=== PATIENT | male | born 1950 | race Caucasian/White ===

== ENCOUNTER → 2016-08-25 | Outpatient (CLI) | payer OTHER | LOC: RAD 08:37 | DX: M47.816 Spondylosis without myelopathy or radiculopathy, lumbar region (principal); M54.5 Low back pain; M25.552 Pain in left hip ==

== ENCOUNTER 2016-11-25 09:42 | Inpatient (IN) | payer OTHER ==
[~2016-11-25] VITALS: Ht 167.6 cm; Wt 81.6 kg
[2016-11-25 10:39] LABS: CREATININE 1.4 mg/dL (0.7-1.3)
[2016-11-25 12:42] VITALS: BP 161/104
[2016-11-25 13:30] LABS: HEMATOCRIT 48.6 % (42.0-52.0); HEMOGLOBIN 16.9 gm/dL (14.0-18.0); MCH 30.9 pg (26.0-34.0); MCHC 34.7 g/dL (28.0-37.0); RBC 5.47 mil/uL (4.50-6.00); RDW 15.1 % (10.5-14.5); WBC 17.6 thou/uL (4.0-11.0)
[2016-11-25 13:45] LABS: ALBUMIN 4.4 g/dL (3.4-5.0); CALCIUM 9.7 mg/dL (8.5-10.1); CREATININE 1.6 mg/dL (0.7-1.3); TOTAL BILIRUBIN 1.1 mg/dL (<0.1-1.0); TOTAL PROTEIN 9.1 g/dL (6.4-8.2)
[2016-11-25 13:53] LABS: POTASSIUM 3.2 mmol/L (3.5-5.1)
[2016-11-25 14:20] LABS: URINE BILIRUBIN NEGATIVE (Negative); URINE BLOOD 3+ (Negative); URINE COLOR YELLOW; URINE GLUCOSE-RANDOM* NEGATIVE (Negative); URINE KETONES 1+ (Negative); URINE NITRITE NEGATIVE (Negative); URINE PROTEIN (DIPSTICK) NEGATIVE (Negative); URINE SPECIFIC GRAVITY <= 1.005 (1.003-1.035); URINE UROBILINOGEN 0.2 E.U./dl (0.2-1.0)
[2016-11-25 14:34] LABS: BACTERIA 1-9 Few /HPF (None Seen); CASTS None Seen /LPF (None Seen); CRYSTALS None Seen /LPF (None Seen); SQUAMOUS None Seen /LPF (0-3); URINE RBC >20 Many /HPF (0-2); URINE WBC None Seen /HPF (0-5)
[2016-11-25 16:23] VITALS: BP 174/105
[2016-11-25 21:58] VITALS: BP 143/106
[2016-11-26 04:57] VITALS: BP 144/101
[2016-11-26 06:11] LABS: HEMATOCRIT 42.1 % (42.0-52.0); MCH 30.9 pg (26.0-34.0); MCHC 34.2 g/dL (28.0-37.0); MCV 90.4 fL (80.0-100.0); RBC 4.65 mil/uL (4.50-6.00); WBC 13.5 thou/uL (4.0-11.0)
[2016-11-26 06:21] LABS: CALCIUM 8.6 mg/dL (8.5-10.1); CREATININE 1.2 mg/dL (0.7-1.3); POTASSIUM 3.4 mmol/L (3.5-5.1)
[2016-11-26 06:30] LABS: HEMOGLOBIN 14.4 gm/dL (14.0-18.0)
[2016-11-26 07:53] VITALS: BP 134/91
[2016-11-26] MEDS ORDERED: HYDROCODON-ACE1 EAC7 PO (15:08)
[2016-11-26] MEDS ORDERED: FLOMAX0.4 MG PO (15:09)
[2016-11-26] MEDS ORDERED: ZOFRAN ODT4 MG PO (15:10)
[2016-11-26 15:24] VITALS: BP 134/91
[2016-11-26 15:29] VITALS: BP 134/91
[2016-11-26 15:44] VITALS: BP 134/91
== END 2016-11-26 16:49 | disposition home or self-care (01) | DRG 694 ==
LOC: CAT 09:42 → 4E 12:21
PROVIDERS: Family Medicine; Hospitalist
DX: N13.2 Hydronephrosis with renal and ureteral calculous obstruction (principal); K59.00 Constipation, unspecified; I10 Essential (primary) hypertension; N17.9 Acute kidney failure, unspecified; Z79.899 Other long term (current) drug therapy; Z86.19 Personal history of other infectious and parasitic diseases; Z87.891 Personal history of nicotine dependence
CPT/HCPCS: 10783

== ENCOUNTER 2017-11-12 02:31 | Emergency (ER) | payer OTHER ==
[~2017-11-12] VITALS: Ht 167.6 cm; Wt 84.8 kg
[~2017-11-12 02:31] MED LIST: FLOMAX0.4 MG PO; HYDROCODON-ACE1 EAC7 PO; ZOFRAN ODT4 MG PO
[2017-11-12] MEDS ORDERED: HYDROCHLOROTHIA25 M2 PO (03:19)
[2017-11-12] MEDS ORDERED: AMLODIPINE BESY10 MG PO (03:20)
[2017-11-12 03:42] LABS: ABSOLUTE NEUTROPHILS 9.9 thou/uL (1.4-8.2); BASOPHILS 0.8 % (0.0-2.0); EOSINOPHILS 1.1 % (0.0-3.0); HEMATOCRIT 44.6 % (42.0-52.0); HEMOGLOBIN 15.2 gm/dL (14.0-18.0); LYMPHOCYTES 19.3 % (24.0-44.0); MCH 31.2 pg (26.0-34.0); MCHC 34.2 g/dL (28.0-37.0); MCV 91.1 fL (80.0-100.0); MONOCYTES 11.7 % (1.0-8.0); PLATELET COUNT 230 thou/uL (150-400); POLYS 67.1 % (36.0-66.0); RBC 4.89 mil/uL (4.50-6.00); WBC 14.8 thou/uL (4.0-11.0)
[2017-11-12 03:50] LABS: CALCIUM 9.2 mg/dL (8.5-10.1); CREATININE 1.1 mg/dL (0.7-1.3); POTASSIUM 3.9 mmol/L (3.5-5.1)
[2017-11-12 03:56] LABS: ALBUMIN 3.4 g/dL (3.4-5.0); TOTAL PROTEIN 7.4 g/dL (6.4-8.2)
[2017-11-12 04:39] LABS: URINE BILIRUBIN NEGATIVE (Negative); URINE BLOOD NEGATIVE (Negative); URINE CLARITY CLEAR; URINE COLOR YELLOW; URINE GLUCOSE-RANDOM* NEGATIVE (Negative); URINE KETONES NEGATIVE (Negative); URINE LEUKOCYTES-REFLEX NEGATIVE (Negative); URINE NITRITE-REFLEX NEGATIVE (Negative); URINE PROTEIN (DIPSTICK) NEGATIVE (Negative); URINE SPECIFIC GRAVITY <= 1.005 (1.005-1.035); URINE UROBILINOGEN 0.2 E.U./dl (0.2-1.0)
[2017-11-12] MEDS ORDERED: ZOFRAN4 MG PO (04:49)
[2017-11-12] MEDS ORDERED: CARAFATE 1 GM TA1 G1 PO (04:49)
[2017-11-12] MEDS ORDERED: ULTRAM 50MG TAB50 MG PO (04:49)
[2017-11-12] MEDS ORDERED: PROTONIX40 MG PO (04:49)
== END 2017-11-12 05:15 | disposition home or self-care (01) ==
LOC: ER 02:31
PROVIDERS: Emergency Medicine
DX: R10.33 Periumbilical pain (principal); I10 Essential (primary) hypertension

== ENCOUNTER 2017-11-14 13:52 | Emergency (ER) | payer OTHER ==
[~2017-11-14] VITALS: Ht 167.6 cm; Wt 84.8 kg
--- NOTE | ~2017-11-14 | EKG ---
[place] [address] [facility] [place] [address] ELECTROCARDIOGRAM REPORT Name: MENDEL JONES Room #: DEP Thony#: [id number] Admission: 11/14/17 Attend Phys: Discharge: 11/14/17 Date of : 54 Report #: [id number] THIS REPORT FOR: //name// [facility] ED Test Date: 2017-11-14 Test Time: 14:32:48 Pat Name: MENDEL JONES Department: Room: Gender: M Award Clerk: DEVORA : 1950 Requested By: Yasmany Benitez Order Number: [id number] MD: Valerio Cameron Measurements Intervals [place] Rate: 106 P: 28 NE: 97 QRS: -28 QRSD: 102 T: 143 QT: 328 QTc: 436 Interpretive Statements Sinus tachycardia Abnormal R-wave progression, early transition LVH with secondary repolarization abnormality No previous ECG available for comparison Electronically Signed On 11-15-2017 8:04:01 CDT by Valerio Cameron [email or web address] <ELECTRONICALLY SIGNED> By: Valerio Cameron MD, [facility] 11/15/17 0804 1432 1432 Valerio Cameron MD, FACC /EPI
[~2017-11-14 13:52] MED LIST changes: +AMLODIPINE BESY10 MG PO; +CARAFATE 1 GM TA1 G1 PO; +HYDROCHLOROTHIA25 M2 PO; +PROTONIX40 MG PO; +ULTRAM 50MG TAB50 MG PO; +ZOFRAN4 MG PO
[2017-11-14 14:32] LABS: ABSOLUTE NEUTROPHILS 11.4 thou/uL (1.4-8.2); BASOPHILS 0.4 % (0.0-2.0); EOSINOPHILS 0.1 % (0.0-3.0); HEMATOCRIT 45.4 % (42.0-52.0); HEMOGLOBIN 15.8 gm/dL (14.0-18.0); LYMPHOCYTES 10.4 % (24.0-44.0); MCH 31.3 pg (26.0-34.0); MCHC 34.7 g/dL (28.0-37.0); MCV 90.2 fL (80.0-100.0); MONOCYTES 11.5 % (1.0-8.0); PLATELET COUNT 192 thou/uL (150-400); POLYS 77.6 % (36.0-66.0); RBC 5.03 mil/uL (4.50-6.00); RDW 13.5 % (10.5-14.5); WBC 14.7 thou/uL (4.0-11.0)
[2017-11-14 14:44] LABS: ANION GAP 6 mmol/L (7-16); BUN 17 mg/dL (7-18); CHLORIDE 92 mmol/L (98-107); CO2 30 mmol/L (21-32); CREATININE 1.3 mg/dL (0.7-1.3); GLUCOSE 144 mg/dL (74-106); POTASSIUM 3.7 mmol/L (3.5-5.1); SODIUM 128 mmol/L (136-145)
[2017-11-14 14:49] LABS: ALBUMIN 3.4 g/dL (3.4-5.0); LIPASE 79 U/L (73-393); SGOT 21 U/L (15-37); SGPT 23 U/L (30-65); TOTAL BILIRUBIN 1.3 mg/dL (<0.1-1.0); TOTAL PROTEIN 8.1 g/dL (6.4-8.2); TROPONIN-I < 0.04 ng/mL (<0.06)
[2017-11-14] MEDS ORDERED: PROTONIX 20 MG20 M1 PO (16:06)
== END 2017-11-14 16:24 | disposition home or self-care (01) ==
LOC: ER 13:52
PROVIDERS: Physician Assistant
DX: R10.11 Right upper quadrant pain (principal); E87.1 Hypo-osmolality and hyponatremia; I10 Essential (primary) hypertension; Z87.891 Personal history of nicotine dependence

== ENCOUNTER → 2019-01-23 | Outpatient (CLI) | payer OTHER ==
[~2019-01-23] MED LIST changes: +PROTONIX 20 MG20 M1 PO
== END ==
LOC: ULTRA 10:11
DX: R10.9 Unspecified abdominal pain (principal)

== ENCOUNTER → 2020-05-06 | Outpatient (CLI) | payer OTHER | LOC: ULTRA 09:11 | PROVIDERS: ATTEND Family Medicine | DX: M79.89 Other specified soft tissue disorders (principal) ==

== ENCOUNTER 2021-04-23 07:50 | Emergency (ER) | payer OTHER ==
[~2021-04-23] VITALS: Ht 170.2 cm; Wt 70.3 kg
--- NOTE | ~2021-04-23 | EMS ---
[address] [address] EMS Patient Care Report Name: MENDEL JONES Room #: REG HAY Bhandari#: [id number] Admission: 04/23/21 Attend Phys: Discharge: Date of : 54 Report #: [id number] THIS REPORT FOR: //name// Report Transmitted: 04/23/2021 11:57 EMS Care Summary [place], [place]/[facility] Incident [phone] @ 04/23/2021 07:17 Incident Location [address] [place] [id number] Patient MENDEL DWYER Male, 70 Years 1950 Patient Address Patient History Hypertension (HTN), Patient Allergies No known allergies, Patient Medications None Reported, Chief Complaint cardiac arrest Disposition Transported Lights/[place] Dispatch Reason Cardiac Arrest/ Transported To [facility] Narrative M36 dispatched on a fall. M36 upgraded to a cardiac arrest. M36 arrived to scene to find PT supine on landing outside of apartment building. PT pulseless and apneic. Compressions initiated by EMS. PT lifted by fire and EMS and placed on stretcher. Calling libertarian stated PT complained of shortness of breath and that they were headed to the car to go to the hospital this morning. Calling libertarian stated PT collapsed while walking to car. Calling libertarian witnessed cardiac [address] [address] EMS Patient Care Report Name: MENDEL JONES Room #: REG [facility]#: [id number] Admission: 04/23/21 Attend Phys: Discharge: Date of : 54 Report #: [id number] arrest. Stretcher and PT placed in ambulance due to weather conditions. IV access looked for, but no viable veins seen. IO access initiated. After 3 rounds of CPR, mechanical CPR attempted, but mechanical issues prevented use of Autopulse. ROSC after 16 minutes of CPR with a rhythm of sinus bradycardia. Atropine given. Transport initiated. Rhythm changed to Vfib and PT defibrillated. CPR resumed. Upon arrival to hospital, PT rhythm changed to sinus bradycardia and pacing attempted. Capture not obtained before PT pulseless with PEA rhythm on monitor. CPR resumed. PT moved to hospital bed via four person sheet lift. PT care and belongings transferred to ER staff at [facility] without incident. M36 placed back in service from call and out of service for equipment. Initial Vitals @07:30P: 221, @07:47P: 39, @07:34P: 172, @07:47P: 24, @07:39P: 41, @07:41P: 22,EtCO2: 0, @07:31P: 123, @07:46P: 37, @07:30P: 95,EtCO2: 0, @07:36P: 133, @07:29P: 170, @07:37P: 167, @07:34P: 153, @07:48P: 70, @07:27P: 0,R: 8,BP: 0/0,Pain: 0/10,GCS: 3,Glucose: 166,Revised Trauma: 2, @07:39P: 40,R: 6,BP: 0/0,Pain: 0/10,GCS: 3,Revised Trauma: 2, @07:48P: 0,R: 8,BP: 0/0,Pain: 0/10,GCS: 3,Revised Trauma: 2, @07:26P: 0,R: 0,BP: 0/0,Pain: 0/10,GCS: 3,Revised Trauma: 0, @07:47P: 60,R: 6,Pain: 0/10, @07:45P: 0,R: 8,BP: 0/0,GCS: 3,EtCO2: 0,Revised Trauma: 2, @07:41P: 0,R: 6,BP: 0/0,Pain: 0/10,GCS: 3,EtCO2: 0,Revised Trauma: 2, Assessments @07:24MENTAL:Unresponsive,SKIN:HEENT:Neck/Airway: Other,LUNG SOUNDS:ABDOMEN:PELVIS//GI:Incontinence,EXTREMITIES:PULSE:Radial: Absent,Carotid: Absent,NEURO:@07:46MENTAL:Unresponsive,SKIN:HEENT:Head/Face: Drainage,Neck/Airway: Other,LUNG SOUNDS:ABDOMEN:PELVIS//GI:Incontinence,EXTREMITIES:Left Arm: Other,Left Leg: Other,PULSE:Carotid: Absent,NEURO: Impression Cardiac arrest [address] [address] EMS Patient Care Report Name: MENDEL JONES Tereso Room #: REG HAY Bhandari#: [id number] Admission: 04/23/21 Attend Phys: Discharge: Date of : 54 Report #: [id number] Procedures @07:47 Response: Unchanged @07:23 Response: UnchangedSucceeded @07:30 Epinephrine 1:10 - 1 Milligrams (mg) - Intraosseous (IO) Response: Unchanged @07:41 Response: UnchangedSucceeded @07:48 Response: Worse @07:34 Epinephrine 1:10 - 1 Milligrams (mg) - Intraosseous (IO) Response: Unchanged @07:26 iGEL Response: UnchangedSucceeded @07:26 Oxygen FlowRate: 15 Device: Bag Valve Mask (BVM) Response: UnchangedSucceeded @07:27 Suction Response: UnchangedSucceeded @07:42 Suction Response: UnchangedSucceeded @07:38 Orotracheal Intubation Complications: Unable To Visualize,Failed Intubation Effort,Injury or Trauma to Patient from Airway Management Effort, Response: WorseFailed @07:40 Orotracheal Intubation Complications: Unable To Visualize, Response: UnchangedFailed @07:29 Intraosseous - Normal Saline (.9% NaCl) 20cc (EZ-IO (Blue 25mm)) Site: NL-Khqnkug-Dugr Response: UnchangedSucceeded @07:37 Intraosseous - Normal Saline (.9% NaCl) 300cc (EZ-IO (Yellow 45mm)) Site: DQ-Ejhgm-Qizl Proximal Response: UnchangedSucceeded @07:37 Response: UnchangedFailed @07:38 Epinephrine 1:10 - 1 Milligrams (mg) - Intraosseous (IO) Response: Unchanged @07:39 Atropine - 1 Milligrams (mg) - Intraosseous (IO) Response: Unchanged @07:44 Epinephrine 1:10 - 1 Milligrams (mg) - Intraosseous (IO) Response: Unchanged Timeline 07:16,Call Received 07:16,Dispatch Notified 07:17,Dispatched 07:19,En Route 07:22,On Scene 07:23,At Patient 07:23,Response: UnchangedSucceeded, 07:26,BP: 0/0 M,PULSE: 0,RR: 0 R,SPO2: Ox,ETCO2: ,BG: ,PAIN: 0,GCS: 3, 07:26,iGEL Response: UnchangedSucceeded, 07:26,Oxygen FlowRate: 15 Device: Bag Valve Mask (BVM) Response: UnchangedSucceeded, 07:27,BP: 0/0 M,PULSE: 0,RR: 8 R,SPO2: Ox,ETCO2: ,B,PAIN: 0,GCS: 3, 07:27,Suction Response: UnchangedSucceeded, [address] [address] EMS Patient Care Report Name: MENDEL JONES [facility] [id number] Admission: 04/23/21 Attend Phys: Discharge: Date of : 54 Report #: [id number] 07:29,Intraosseous - Normal Saline (.9% NaCl) 20cc EZ-IO (Blue 25mm) Site: XX-Yztqcpa-Tggl,Response: UnchangedSucceeded, 07:29,BP: / M,PULSE: 170,RR: R,SPO2: Ox,ETCO2: ,BG: ,PAIN: ,GCS: , 07:30,Epinephrine 1:10 - 1 Milligrams (mg) - Intraosseous (IO),Response: Unchanged 07:30,BP: / M,PULSE: 95,RR: R,SPO2: Ox,ETCO2: 0 ,BG: ,PAIN: ,GCS: , 07:30,BP: / M,PULSE: 221,RR: R,SPO2: Ox,ETCO2: ,BG: ,PAIN: ,GCS: , 07:31,BP: / M,PULSE: 123,RR: R,SPO2: Ox,ETCO2: ,BG: ,PAIN: ,GCS: , 07:34,BP: / M,PULSE: 153,RR: R,SPO2: Ox,ETCO2: ,BG: ,PAIN: ,GCS: , 07:34,Epinephrine 1:10 - 1 Milligrams (mg) - Intraosseous (IO),Response: Unchanged 07:34,BP: / M,PULSE: 172,RR: R,SPO2: Ox,ETCO2: ,BG: ,PAIN: ,GCS: , 07:36,BP: / M,PULSE: 133,RR: R,SPO2: Ox,ETCO2: ,BG: ,PAIN: ,GCS: , 07:37,Response: UnchangedFailed, 07:37,Intraosseous - Normal Saline (.9% NaCl) 300cc EZ-IO (Yellow 45mm) Site: GR-Kehpf-Casd Proximal,Response: UnchangedSucceeded, 07:37,BP: / M,PULSE: 167,RR: R,SPO2: Ox,ETCO2: ,BG: ,PAIN: ,GCS: , 07:38,Orotracheal Intubation Complications: Unable To Visualize,Failed Intubation Effort,Injury or Trauma to Patient from Airway Management Effort,,Response: WorseFailed, 07:38,Epinephrine 1:10 - 1 Milligrams (mg) - Intraosseous (IO),Response: Unchanged 07:39,BP: 0/0 M,PULSE: 40,RR: 6 R,SPO2: Ox,ETCO2: ,BG: ,PAIN: 0,GCS: 3, 07:39,Atropine - 1 Milligrams (mg) - Intraosseous (IO),Response: Unchanged 07:39,BP: / M,PULSE: 41,RR: R,SPO2: Ox,ETCO2: ,BG: ,PAIN: ,GCS: , 07:40,Orotracheal Intubation Complications: Unable To Visualize,,Response: UnchangedFailed, 07:41,BP: / M,PULSE: 22,RR: R,SPO2: Ox,ETCO2: 0 ,BG: ,PAIN: ,GCS: , 07:41,BP: 0/0 M,PULSE: 0,RR: 6 R,SPO2: Ox,ETCO2: 0 ,BG: ,PAIN: 0,GCS: 3, 07:41,Response: UnchangedSucceeded, 07:42,Suction Response: UnchangedSucceeded, 07:43,Depart Scene 07:44,Epinephrine 1:10 - 1 Milligrams (mg) - Intraosseous (IO),Response: Unchanged 07:45,BP: 0/0 M,PULSE: 0,RR: 8 R,SPO2: Ox,ETCO2: 0 ,BG: ,PAIN: ,GCS: 3, 07:46,BP: / M,PULSE: 37,RR: R,SPO2: Ox,ETCO2: ,BG: ,PAIN: ,GCS: , 07:47,BP: / M,PULSE: 24,RR: R,SPO2: Ox,ETCO2: ,BG: ,PAIN: ,GCS: , 07:47,At Destination 07:47,Response: Unchanged 07:47,BP: / M,PULSE: 39,RR: R,SPO2: Ox,ETCO2: ,BG: ,PAIN: ,GCS: , 07:47,BP: / M,PULSE: 60,RR: 6 R,SPO2: Ox,ETCO2: ,BG: ,PAIN: 0,GCS: , 07:48,Response: Worse 07:48,BP: / M,PULSE: 70,RR: R,SPO2: Ox,ETCO2: ,BG: ,PAIN: ,GCS: , 07:48,BP: 0/0 M,PULSE: 0,RR: 8 R,SPO2: Ox,ETCO2: ,BG: ,PAIN: 0,GCS: 3, 08:15,Call Closed [facility] [address] [place] [address] EMS Patient Care Report Name: MENDEL JONES Room #: REG M.R.#: [id number] Admission: 04/23/21 Attend Phys: Discharge: Date of : 54 Report #: [id number] Disclaimer v1.1 Copyright 2020 [employer] This EMS Care Summary contains data elements from the applicable legal record (which may be displayed differently). It is designed to provide pertinent information for the following purposes: continuity of care, clinical quality, and state data reporting. The complete legal record is available to ED staff and administrators of the receiving hospital in [employer]'s Patient Tracker. All data is provided "as is."
[2021-04-23 08:44] LABS: BE(vivo) -24.6 mmol/L (-2 to +3); HCO3 11.7 mmol/L (22.0-26.0); PO2 66.3 mmHg (80.0-100.0); sO2 67.3 % (92.0-98.0)
[2021-04-23 08:45] LABS: PCO2 85.2 mmHg (35.0-45.0); pH 6.757 (7.360-7.450)
[2021-04-23 09:32] LABS: HEMOGLOBIN 8.7 gm/dL (14.0-18.0); MCH 30.8 pg (26.0-34.0); MCHC 27.1 g/dL (28.0-37.0); MCV 113.8 fL (80.0-100.0); PLATELET COUNT 133 thou/uL (150-400); RBC 2.82 mil/uL (4.50-6.00); RDW 18.5 % (10.5-14.5); WBC 13.2 thou/uL (4.0-11.0)
[2021-04-23 09:45] LABS: INR 1.98
[2021-04-23 09:52] VITALS: BP 124/74
[2021-04-23 09:53] LABS: BE(vivo) -16.6 mmol/L (-2 to +3); HCO3 18.2 mmol/L (22.0-26.0); PCO2 100.9 mmHg (35.0-45.0); PO2 33.5 mmHg (80.0-100.0); pH 6.875 (7.360-7.450); sO2 31.6 % (92.0-98.0)
[2021-04-23] MEDS ORDERED: ATENOLOL 100MG100 MG PO (10:01)
[2021-04-23] MEDS ORDERED: SILDENAFIL CIT100 MG PO (10:02)
[2021-04-23] MEDS ORDERED: ALLOPURINOL 10100 M1 PO (10:02)
[2021-04-23 10:03] LABS: APTT 55.8 Seconds (24.5-32.8); PROTIME 20.9 Seconds (10.5-12.1)
[2021-04-23 10:05] LABS: ALBUMIN 1.4 g/dL (3.4-5.0); ANION GAP 8 mmol/L (7-16); BUN 20 mg/dL (7-18); CALCIUM 6.2 mg/dL (8.5-10.1); CHLORIDE 96 mmol/L (98-107); CO2 42 mmol/L (21-32); CREATININE 3.1 mg/dL (0.7-1.3); LIPASE 20 U/L (73-393); SGOT 97 U/L (15-37); SGPT 69 U/L (30-65); SODIUM 146 mmol/L (136-145); TOTAL BILIRUBIN 0.7 mg/dL (0.2-1.0); TOTAL PROTEIN 3.9 g/dL (6.4-8.2)
[2021-04-23 10:11] LABS: POTASSIUM 2.4 mmol/L (3.5-5.1)
[2021-04-23 11:04] LABS: GLUCOSE > 2500 mg/dL (74-106)
[2021-04-23 12:29] LABS: ABSOLUTE NEUTROPHILS 9.9 thou/uL (1.4-8.2); ANISOCYTOSIS SLIGHT; MACROCYTES FEW; NUCLEATED RBCS 2 /100WBC
--- NOTE | 2021-04-26 07:30 | EKG ---
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 : 1950 Requested By: Shalom Colunga Order Number: [id number] MD: Porter Powell Measurements Intervals [place] Rate: 97 P: AR: QRS: -30 QRSD: 98 T: 156 QT: 305 QTc: 388 Interpretive Statements Atrial fibrillation Inferior infarct, recent Abnrm T, consider ischemia, anterolateral lds Lead(s) II were not used for morphology analysis Compared to ECG 11/14/2017 14:32:48 Sinus tachycardia no longer present Left ventricular hypertrophy no longer present Early repolarization no longer present Electronically Signed On 04-26-2021 7:30:25 CLOCK MECHANIC by Porter Powell [email or web address] <ELECTRONICALLY SIGNED> By: Porter Powell MD, [facility] 04/26/21 0730 2 2 Porter Powell MD, [facility] /EPI
--- NOTE | 2021-04-26 07:30 | EKG ---
[place] [address] [facility] [place] [address] ELECTROCARDIOGRAM REPORT Name: MENDEL JONES Room #: [facility] [place]Juan M#: [id number] Admission: 04/23/21 Attend Phys: Discharge: 04/23/21 Date of : 54 Report #: [id number] [facility] ED Test Date: 2021-04-23 Test Time: 08:37:14 Pat Name: MENDEL JONES Department: Room: Gender: M Drafter Structural: zuhair : 1950 Requested By: Shalom Colunga Order Number: [id number] MD: Porter Powell Measurements Intervals [place] Rate: 133 P: [place]: QRS: -35 QRSD: 132 T: 4 QT: 341 QTc: 508 Interpretive Statements Atrial fibrillation Right bundle branch block Abnormal lateral Q waves ST depr, consider ischemia, anterolateral lds Baseline wander in lead(s) I,II,aVR Compared to ECG 04/23/2021 08:03:55 Right bundle-branch block now present Q waves now present Myocardial infarct finding no longer present Possible ischemia still present Electronically Signed On 04-26-2021 7:30:49 [employer]OTEL GENERAL MANAGER by Porter Powell [email or web address] <ELECTRONICALLY SIGNED> By: Porter Powell MD, FACC 04/26/21 0730 0837 Porter Powell MD, [facility] /EPI
== END 2021-04-23 10:20 ==
LOC: ER 07:50
PROVIDERS: Emergency Medicine
DX: I46.9 Cardiac arrest, cause unspecified (principal); Z20.822 Contact with and (suspected) exposure to COVID-19; J96.90 Respiratory failure, unspecified, unspecified whether with hypoxia or hypercapnia; I10 Essential (primary) hypertension; Z87.891 Personal history of nicotine dependence; Z79.899 Other long term (current) drug therapy